=== PATIENT | female | born 1955 | race Caucasian/White ===

== ENCOUNTER → 2023-08-27 11:07 | Outpatient (REF) | payer MEDICARE, SELFPAY | LOC: HWRAD 11:07 | PROVIDERS: ATTENDING PHYSICIAN Nurse Practitioner Adult Health | DX: R91.1 Solitary pulmonary nodule (principal) | CPT/HCPCS: 71250 ==

== ENCOUNTER → 2023-09-06 12:26 | Outpatient (REF) | payer MEDICARE, SELFPAY | LOC: HWRAD 12:26 | PROVIDERS: ATTENDING PHYSICIAN Nurse Practitioner Adult Health | DX: E04.1 Nontoxic single thyroid nodule (principal) | CPT/HCPCS: 76536 ==

== ENCOUNTER → 2024-04-18 08:51 | Outpatient (REF) | payer MEDICARE, SELFPAY ==
[2024-04-18 10:04] LABS: Urine Albumin Negative (Neg - Trace); Urine Bilirubin Negative (Negative); Urine Character Clear (Clear); Urine Color Yellow; Urine Glucose Negative (Negative); Urine Ketone Negative (Negative); Urine Leukocyte Negative (Negative); Urine Nitrite Negative (Negative); Urine Occult Blood Negative (Negative); Urine Specific Gravity 1.015 (<1.030); Urine Urobilinogen Negative (Neg - 1+)
[2024-04-18 10:46] LABS: ALT (SGPT) 28 U/L (0-35); AST (SGOT) 32 U/L (14-36); Albumin 4.4 g/dl (3.5-5.0); Alkaline Phosphatase 65 U/L (38-126); Blood Urea Nitrogen 15 mg/dl (7-17); Calcium 9.8 mg/dl (8.4-10.2); Carbon Dioxide 28 mmol/L (22-30); Chloride 102 mmol/L (98-107); Glucose 81 mg/dl (70-99); Potassium 4.8 mmol/L (3.5-5.1); Sodium 142 mmol/L (135-145); Total Bilirubin 0.9 mg/dl (0.2-1.3); Total Protein 6.7 g/dl (6.3-8.2); eGFR > 60.00
== END ==
LOC: RAD 08:51
PROVIDERS: ATTENDING PHYSICIAN Specialist; FAMILY PHYSICIAN Physician Assistant Medical
DX: N13.30 Unspecified hydronephrosis (principal)
CPT/HCPCS: 36415; 74176; 80053; 81003

== ENCOUNTER → 2025-03-16 11:44 | Outpatient (REF) | payer MEDICARE, SELFPAY | LOC: EMG 11:44 | PROVIDERS: ATTENDING PHYSICIAN Internal Medicine Rheumatology; FAMILY PHYSICIAN Physician Assistant Medical; OTHER PHYSICIAN Specialist | DX: R20.0 Anesthesia of skin (principal); G56.03 Carpal tunnel syndrome, bilateral upper limbs | CPT/HCPCS: 74018; 95886; 95911 ==